=== PATIENT | female | born 1960 | race Caucasian/White ===

== ENCOUNTER 2016-11-18 09:22 | Observation (INO) ==
[2016-11-18] MEDS ORDERED: Ondansetron 4 MG/2 ML VIAL IVP ONE (10:00)
[2016-11-18] MEDS ORDERED: 0.9 % Sodium Chloride 1,000 ML IVC ONE (10:00)
[2016-11-18] MEDS ORDERED: Pantoprazole 40 MG VIAL IVP ONE (10:02)
--- NOTE | 2016-11-18 10:03 | Emergency Department Note ---
Disposition Clinical Impression: Hypokalemia Left lower lobe pneumonia Qualifiers: Pneumonia type: due to unspecified organism Qualified Code(s): J18.1 - Lobar pneumonia, unspecified organism Disposition: Admitted As Inpatient Condition: Fair General Adult HPI - General Chief complaint: ED Nausea/Vomiting/Diarrhea Stated complaint: nausea, dizziness Time Seen by Provider: 11/18/16 09:40 Source: patient Limitations: no limitations Nursing Notes Reviewed: Yes Vital Signs Reviewed: Yes - History of Present Illness HPI Narrative: Mrs. Childs, 56-year-old female, presents from home by POV with chief complaint of nausea, epigastric pain. Persistent since endoscopic removal of a silicone satiety ball at [facility] 3 days ago. Epigastric pain described as a fist-like sensation with radiation into the-like distribution around each side to her back. Indication for removal of the device was pain with protracted nausea with vomiting which began 8 days ago. The device was placed approximately 5 weeks ago as an aid to increase satiety thus decreasing by mouth intake. During removal 3 days ago, patient's surgeon noted extensive gastritis. Patient has since had decreased by mouth intake, epigastric pain unrelieved by PPI, protracted nausea. She is able to keep down fluids. She has had decreased bowel movements which she should restart her decreased by mouth intake. Bowel movements described as pale and soft. She is still passing flatus. PMH: Hypertension, obesity. PSH: Cholecystectomy. Allergies: NKDA. Pain Scale: 0 - Related Data Home Medications Medication Instructions Recorded Confirmed Albuterol Sulfate [Albuterol 3 ml IH Q4-6H PRN 11/18/16 11/18/16 Sulfate] Albuterol Sulfate [Proventil Hfa] 2 puff IH Q4H PRN 11/18/16 11/18/16 Amlodipine Besylate [Amlodipine 10 mg PO DAILY 11/18/16 11/18/16 Besylate] Fluticasone/Salmeterol [Advair 1 puff IH BID 11/18/16 11/18/16 250-50 Diskus] Metoprolol XL (24 HR) Succ [Toprol 50 mg PO DAILY 11/18/16 11/18/16 Xl] Montelukast [Singulair] 10 mg PO DAILY 11/18/16 11/18/16 Omeprazole [PriLOSEC] 20 mg PO DAILY 11/18/16 11/18/16 Sertraline [Zoloft] 100 mg PO DAILY 11/18/16 11/18/16 Allergies Allergy/AdvReac Type Severity Reaction Status Date / Time No Known Allergies Allergy Verified 11/18/16 09:29 All systems ED: reviewed and negative except as stated. Constitutional: Denies: fever, chills, weakness Cardiovascular: Denies: chest pain, palpitations, dyspnea on exertion Respiratory: Denies: cough, dyspnea, wheezes, hemoptysis Gastrointestinal: Reports: abdominal pain, nausea. Denies: vomiting, diarrhea, constipation, hematemesis, melena, hematochezia Genitourinary: Denies: urgency, dysuria, frequency Musculoskeletal: Reports: back pain. Denies: neck pain Integumentary: Denies: rash, abrasion, lesions Neurological: Denies: headache, weakness, numbness, paresthesias Hematological/Lymphatic: Reports: easy bruising. Denies: easy bleeding Past Medical History - Past Medical History Medical history: Reports: hypertension Psychiatric history: Reports: anxiety - Social History Smoking Status: Former smoker Alcohol use: Reports: none Drug use: Reports: none Physical Exam General: Patient is well-appearing and nontoxic, alert, oriented, and in no acute distress. HEENT: No facial asymmetry. Head is normocephalic and atraumatic. PERRLA, EOMI. trachea midline. Cardiovascular: Heart regular rate and rhythm without clicks, rubs, gallops, or murmurs. No pedal edema. Respiratory: Symmetric chest rise with good respiratory effort. Bilateral breath sounds are clear without wheezing, crackles, or rhonchi. Abdomen: Bowel sounds are faint but present x-4 quadrants. Abdomen is soft, nondistended, without guarding. Tenderness in epigastrium with extension into the left upper quadrant subcostal margin. No organomegaly noted. Psych: Patient's affect is appropriate for situation. - General Limitations: no limitations General appearance: alert, in no apparent distress Course Course Narrative: Once workup is complete, we will speak with her surgeon at [facility]. Patient's nausea persists though it has improved to the point where she is hungry. Patient is hypokalemic with potassium 2.8. Will replenish with 20 mEq IV. Acute abdomen series as well as physical exam is concerning for left lower lobe findings. [place] to treat for left lower lobe pneumonia. After discussing the findings with the patient and her their shared decision making, they prefer admission given the protracted course of her symptoms. does not feel safe with the patient at home is a recently sold her house and moved into short-term accommodations in apartment with multiple stairs to climb. [facility]. [facility] [id number] [place] [address], [address] [place] [address] - Moderate esophagitis on endoscopy. - No additional concerns from their perspective. Spoke with Dr. Lombardo who agrees to accept the patient. Vital Signs Temperature 98.6 F 11/18/16 09:29 Pulse Rate 100 11/18/16 09:29 Respiratory Rate 18 11/18/16 09:29 Blood Pressure 129/77 11/18/16 09:29 O2 Sat by Pulse Oximetry 95 11/18/16 09:29 Temperature 98.2 F 11/18/16 14:03 Pulse Rate 82 11/18/16 14:03 Respiratory Rate 17 11/18/16 14:03 Blood Pressure 134/80 11/18/16 14:03 O2 Sat by Pulse Oximetry 96 11/18/16 14:03 Oxygen Delivery Oxygen Delivery Room Air Medical Decision Making - Medical Records Medical records reviewed: Yes I reviewed the patient's medical records. - Lab Data Lab results reviewed: Yes I reviewed the patient's lab results. Result diagrams: 11/18/16 10:12 11/18/16 10:12 Lab Results 11/18/16 11/18/16 11/18/16 Range/Units 10:12 10:12 10:12 WBC 9.7 (4.3-11.1) K/mcL RBC 4.63 (3.82-4.97) M/mcL Hgb 13.6 (11.5-15.4) g/dL Hct 39.3 (35.3-44.9) % MCV 84.9 (83.0-100.0) fL MCH 29.4 (28.0-33.3) pg MCHC 34.6 (31.6-35.5) g/dL RDW 11.8 (11.5-14.5) % Plt Count 142 (140-400) K/mcL MPV 10.8 (9.4-12.4) fL Immature Gran % 0.4 (0-4) % Seg Neutrophils % 84.0 % Lymphocytes % 6.1 % Monocytes % 8.7 % Eosinophils % 0.6 % Basophils % 0.2 % Neutrophils # 8.1 (1.6-8.9) K/mcL Lymphocytes # 0.6 (0.6-4.6) K/mcL Monocytes # 0.8 (0.0-1.3) K/mcL Eosinophils # 0.1 (0.0-0.6) K/mcL Basophils # 0.0 (0.0-0.2) K/mcL Immature Plt Fraction 7.9 H (1.1-6.1) % Sodium 140 (136-145) mEq/L Potassium 2.8 L (3.5-4.5) mEq/L Chloride 104 (98-109) mEq/L Carbon Dioxide 26 (19-29) mEq/L BUN 8 (7-20) mg/dL Creatinine 0.76 (0.57-1.11) mg/dL Est GFR ( Amer) > 60 (> 60) Est GFR (Non-Af Amer) > 60 (> 60) BUN/Creatinine Ratio 11 (6-26) Glucose 111 H (70-99) mg/dL Calculated Osmolality 289 (280-300) Calcium 9.0 (8.6-10.8) mg/dL Total Bilirubin 0.8 (0.2-1.2) mg/dL AST 21 (5-34) Units/L ALT 128 H (0-55) Units/L Alkaline Phosphatase 93 (38-126) Units/L Troponin I 0.00 (0-0.03) ng/mL Serum Total Protein 6.8 (6.0-8.3) g/dL Albumin 3.4 L (3.5-5.0) g/dL Globulin 3.4 (2.4-3.5) g/dL Albumin/Globulin Ratio 1.0 L (1.1-2.2) Lipase 11 (8-78) Units/L Urine Color (Yellow) Urine Clarity (Clear) Urine pH (5.0-8.0) pH Units Ur Specific [place] (1.010-1.025) Urine Protein (Neg-Trace) mg/dL Urine Glucose (UA) (Normal) mg/dL Urine Ketones (Negative) mg/dL Urine Blood (Negative) Urine Nitrite (Negative) Urine Bilirubin (Negative) Urine Urobilinogen (Normal) mg/dL Ur Leukocyte Esterase (Negative) Urine Microscopic RBC (0-3) per hpf Urine Microscopic WBC (0-3) per hpf Ur Squamous Epith Cells (None-Few) per lpf Urine Bacteria (None-Few) per hpf Hyaline Casts (None-Few) per lpf Urine Mucus (Few) Ur Culture Indicated? (NO) Urine Test (Negative) 11/18/16 11/18/16 Range/Units 10:55 10:55 WBC (4.3-11.1) K/mcL RBC (3.82-4.97) M/mcL Hgb (11.5-15.4) g/dL Hct (35.3-44.9) % MCV (83.0-100.0) fL MCH (28.0-33.3) pg MCHC (31.6-35.5) g/dL RDW (11.5-14.5) % Plt Count (140-400) K/mcL MPV (9.4-12.4) fL Immature Gran % (0-4) % Seg Neutrophils % % Lymphocytes % % Monocytes % % Eosinophils % % Basophils % % Neutrophils # (1.6-8.9) K/mcL Lymphocytes # (0.6-4.6) K/mcL Monocytes # (0.0-1.3) K/mcL Eosinophils # (0.0-0.6) K/mcL Basophils # (0.0-0.2) K/mcL Immature Plt Fraction (1.1-6.1) % Sodium (136-145) mEq/L Potassium (3.5-4.5) mEq/L Chloride (98-109) mEq/L Carbon Dioxide (19-29) mEq/L BUN (7-20) mg/dL Creatinine (0.57-1.11) mg/dL Est GFR ( Amer) (> 60) Est GFR (Non-Af Amer) (> 60) BUN/Creatinine Ratio (6-26) Glucose (70-99) mg/dL Calculated Osmolality (280-300) Calcium (8.6-10.8) mg/dL Total Bilirubin (0.2-1.2) mg/dL AST (5-34) Units/L ALT (0-55) Units/L Alkaline Phosphatase (38-126) Units/L Troponin I (0-0.03) ng/mL Serum Total Protein (6.0-8.3) g/dL Albumin (3.5-5.0) g/dL Globulin (2.4-3.5) g/dL Albumin/Globulin Ratio (1.1-2.2) Lipase (8-78) Units/L Urine Color Dark Yellow (Yellow) Urine Clarity Cloudy A (Clear) Urine pH 7.0 (5.0-8.0) pH Units Ur Specific [place] 1.020 (1.010-1.025) Urine Protein 30 H (Neg-Trace) mg/dL Urine Glucose (UA) Normal (Normal) mg/dL Urine Ketones Trace H (Negative) mg/dL Urine Blood Negative (Negative) Urine Nitrite Negative (Negative) Urine Bilirubin Small H (Negative) Urine Urobilinogen Normal (Normal) mg/dL Ur Leukocyte Esterase Negative (Negative) Urine Microscopic RBC 0-3 (0-3) per hpf Urine Microscopic WBC 0-3 (0-3) per hpf Ur Squamous Epith Cells Few (None-Few) per lpf Urine Bacteria None Seen (None-Few) per hpf Hyaline Casts None Seen (None-Few) per lpf Urine Mucus Moderate H (Few) Ur Culture Indicated? NO (NO) Urine Test Negative (Negative) - Radiology Data Radiology results reviewed: Yes I reviewed the patient's radiology results. Chest/Abdomen X-ray 11/18/16 10:00 IMPRESSION: 1. Left lower lobe pneumonia. 2. Nonobstructive bowel gas pattern. D/ / Vivek Garcia MD / Vivek Garcia MD Interpreting Provider: Vivek Garcia MD - EKG Data EKG #1 EKG attestation: Yes I reviewed and interpreted this EKG. EKG results narrative: EKG dated 11/18/16 interpreted as sinus rhythm with rate of 83. Oral intervals IA 160, QRS 94, QT/QTC 374/414. Left axis. Q waves evident in the [address]-T changes. Compared to previous dated 08/27/2014 indicating no acute ischemic changes of comparison.
--- NOTE | 2016-11-18 10:09 | Emergency Department Note ---
Disposition Clinical Impression: Hypokalemia, Left lower lobe pneumonia Disposition: Admitted As Inpatient Condition: Fair General Adult HPI - General Chief complaint: ED Nausea/Vomiting/Diarrhea Stated complaint: nausea, dizziness Time Seen by Provider: 11/18/16 09:40 Source: patient Limitations: no limitations Nursing Notes Reviewed: Yes Vital Signs Reviewed: Yes - History of Present Illness Pain Scale: 0 - Related Data Home Medications Medication Instructions Recorded Confirmed Albuterol Sulfate [Albuterol 3 ml IH Q4-6H PRN 11/18/16 11/18/16 Sulfate] Albuterol Sulfate [Proventil Hfa] 2 puff IH Q4H PRN 11/18/16 11/18/16 Amlodipine Besylate [Amlodipine 10 mg PO DAILY 11/18/16 11/18/16 Besylate] Fluticasone/Salmeterol [Advair 1 puff IH BID 11/18/16 11/18/16 250-50 Diskus] Metoprolol XL (24 HR) Succ [Toprol 50 mg PO DAILY 11/18/16 11/18/16 Xl] Montelukast [Singulair] 10 mg PO DAILY 11/18/16 11/18/16 Omeprazole [PriLOSEC] 20 mg PO DAILY 11/18/16 11/18/16 Sertraline [Zoloft] 100 mg PO DAILY 11/18/16 11/18/16 Allergies Allergy/AdvReac Type Severity Reaction Status Date / Time No Known Allergies Allergy Verified 11/18/16 09:29 Past Medical History - Past Medical History Medical history: Reports: hypertension Psychiatric history: Reports: anxiety - Social History Smoking Status: Former smoker Alcohol use: Reports: none Drug use: Reports: none Physical Exam - General Limitations: no limitations General appearance: alert, in no apparent distress Course Vital Signs Temperature 98.6 F 11/18/16 09:29 Pulse Rate 100 11/18/16 09:29 Respiratory Rate 18 11/18/16 09:29 Blood Pressure 129/77 11/18/16 09:29 O2 Sat by Pulse Oximetry 95 11/18/16 09:29 Temperature 98.2 F 11/18/16 14:03 Pulse Rate 82 11/18/16 14:03 Respiratory Rate 18 11/18/16 16:10 Blood Pressure 134/80 11/18/16 14:03 O2 Sat by Pulse Oximetry 96 11/18/16 16:10 Oxygen Delivery Oxygen Delivery Room Air Medical Decision Making - MDM Narrative Medical decision making narrative: I examined this patient and my medical decision-making was reviewed with the MICROBIOLOGY LABORATORY MANAGER/PA/Advanced Practice Nurse/Resident Physician. I agree with the documented findings, disposition and treatment plan as described except to the extent set forth below. Patient presents today with her and was seen by Dr. Hull and myself, I agree with his evaluation and management plan, supervising care the patient's stay. Patient comes in today complaining of nausea and some vomiting and abdominal discomfort. 5 weeks ago she had an implant placed in her stomach to help her with weight loss. She was able to tolerate for 5 weeks. They removed it because she was having a lot of pain and nausea. When he removed it they noticed she had significant gastritis, they placed her on a PPI. And she still had a lot of nausea and discomfort but no true abdominal pain. She says she is passing gas was able to eat some toast and tea this morning is still nauseous. She is having no chest pain or shortness of breath. She said her gallbladder out in the past and she has had a hysterectomy but still has her ovaries in place. We will see if we can make her more comfortable, check some lab work, check an acute abdominal series on her, and then we will see if we can get in touch with her physician in [place] who placed this for further follow-up. She is in agreement with this plan. Chest/Abdomen X-ray 11/18/16 10:00 IMPRESSION: 1. Left lower lobe pneumonia. 2. Nonobstructive bowel gas pattern. D/ / Vivek Garcia MD / Vivek Garcia MD Interpreting Provider: Vivek Garcia MD 1115 hrs.: Patient has a pneumonia on her chest x-ray. She is nontoxic. She is feeling better after getting fluids. Return replace her potassium, started on IV antibiotics. We will determine whether she needs to come into the hospital or if she would rather go home. She is in agreement with this plan. - Lab Data Result diagrams: 11/18/16 10:12 11/18/16 10:12 Lab Results 11/18/16 11/18/16 11/18/16 Range/Units 10:12 10:12 10:12 WBC 9.7 (4.3-11.1) K/mcL RBC 4.63 (3.82-4.97) M/mcL Hgb 13.6 (11.5-15.4) g/dL Hct 39.3 (35.3-44.9) % MCV 84.9 (83.0-100.0) fL MCH 29.4 (28.0-33.3) pg MCHC 34.6 (31.6-35.5) g/dL RDW 11.8 (11.5-14.5) % Plt Count 142 (140-400) K/mcL MPV 10.8 (9.4-12.4) fL Immature Gran % 0.4 (0-4) % Seg Neutrophils % 84.0 % Lymphocytes % 6.1 % Monocytes % 8.7 % Eosinophils % 0.6 % Basophils % 0.2 % Neutrophils # 8.1 (1.6-8.9) K/mcL Lymphocytes # 0.6 (0.6-4.6) K/mcL Monocytes # 0.8 (0.0-1.3) K/mcL Eosinophils # 0.1 (0.0-0.6) K/mcL Basophils # 0.0 (0.0-0.2) K/mcL Immature Plt Fraction 7.9 H (1.1-6.1) % Sodium 140 (136-145) mEq/L Potassium 2.8 L (3.5-4.5) mEq/L Chloride 104 (98-109) mEq/L Carbon Dioxide 26 (19-29) mEq/L BUN 8 (7-20) mg/dL Creatinine 0.76 (0.57-1.11) mg/dL Est GFR ( Amer) > 60 (> 60) Est GFR (Non-Af Amer) > 60 (> 60) BUN/Creatinine Ratio 11 (6-26) Glucose 111 H (70-99) mg/dL Calculated Osmolality 289 (280-300) Calcium 9.0 (8.6-10.8) mg/dL Magnesium 1.6 (1.6-2.6) mg/dL Total Bilirubin 0.8 (0.2-1.2) mg/dL AST 21 (5-34) Units/L ALT 128 H (0-55) Units/L Alkaline Phosphatase 93 (38-126) Units/L Troponin I 0.00 (0-0.03) ng/mL Serum Total Protein 6.8 (6.0-8.3) g/dL Albumin 3.4 L (3.5-5.0) g/dL Globulin 3.4 (2.4-3.5) g/dL Albumin/Globulin Ratio 1.0 L (1.1-2.2) Lipase 11 (8-78) Units/L Urine Color (Yellow) Urine Clarity (Clear) Urine pH (5.0-8.0) pH Units Ur Specific [place] (1.010-1.025) Urine Protein (Neg-Trace) mg/dL Urine Glucose (UA) (Normal) mg/dL Urine Ketones (Negative) mg/dL Urine Blood (Negative) Urine Nitrite (Negative) Urine Bilirubin (Negative) Urine Urobilinogen (Normal) mg/dL Ur Leukocyte Esterase (Negative) Urine Microscopic RBC (0-3) per hpf Urine Microscopic WBC (0-3) per hpf Ur Squamous Epith Cells (None-Few) per lpf Urine Bacteria (None-Few) per hpf Hyaline Casts (None-Few) per lpf Urine Mucus (Few) Ur Culture Indicated? (NO) Urine Test (Negative) 11/18/16 11/18/16 Range/Units 10:55 10:55 WBC (4.3-11.1) K/mcL RBC (3.82-4.97) M/mcL Hgb (11.5-15.4) g/dL Hct (35.3-44.9) % MCV (83.0-100.0) fL MCH (28.0-33.3) pg MCHC (31.6-35.5) g/dL RDW (11.5-14.5) % Plt Count (140-400) K/mcL MPV (9.4-12.4) fL Immature Gran % (0-4) % Seg Neutrophils % % Lymphocytes % % Monocytes % % Eosinophils % % Basophils % % Neutrophils # (1.6-8.9) K/mcL Lymphocytes # (0.6-4.6) K/mcL Monocytes # (0.0-1.3) K/mcL Eosinophils # (0.0-0.6) K/mcL Basophils # (0.0-0.2) K/mcL Immature Plt Fraction (1.1-6.1) % Sodium (136-145) mEq/L Potassium (3.5-4.5) mEq/L Chloride (98-109) mEq/L Carbon Dioxide (19-29) mEq/L BUN (7-20) mg/dL Creatinine (0.57-1.11) mg/dL Est GFR ( Amer) (> 60) Est GFR (Non-Af Amer) (> 60) BUN/Creatinine Ratio (6-26) Glucose (70-99) mg/dL Calculated Osmolality (280-300) Calcium (8.6-10.8) mg/dL Magnesium (1.6-2.6) mg/dL Total Bilirubin (0.2-1.2) mg/dL AST (5-34) Units/L ALT (0-55) Units/L Alkaline Phosphatase (38-126) Units/L Troponin I (0-0.03) ng/mL Serum Total Protein (6.0-8.3) g/dL Albumin (3.5-5.0) g/dL Globulin (2.4-3.5) g/dL Albumin/Globulin Ratio (1.1-2.2) Lipase (8-78) Units/L Urine Color Dark Yellow (Yellow) Urine Clarity Cloudy A (Clear) Urine pH 7.0 (5.0-8.0) pH Units Ur Specific [place] 1.020 (1.010-1.025) Urine Protein 30 H (Neg-Trace) mg/dL Urine Glucose (UA) Normal (Normal) mg/dL Urine Ketones Trace H (Negative) mg/dL Urine Blood Negative (Negative) Urine Nitrite Negative (Negative) Urine Bilirubin Small H (Negative) Urine Urobilinogen Normal (Normal) mg/dL Ur Leukocyte Esterase Negative (Negative) Urine Microscopic RBC 0-3 (0-3) per hpf Urine Microscopic WBC 0-3 (0-3) per hpf Ur Squamous Epith Cells Few (None-Few) per lpf Urine Bacteria None Seen (None-Few) per hpf Hyaline Casts None Seen (None-Few) per lpf Urine Mucus Moderate H (Few) Ur Culture Indicated? NO (NO) Urine Test Negative (Negative)
[2016-11-18 10:21] LABS: Basophils % 0.2 %; Eosinophils # 0.1 K/mcL (0.0-0.6); Eosinophils % 0.6 %; Hematocrit 39.3 % (35.3-44.9); Hemoglobin 13.6 g/dL (11.5-15.4); Immature Granulocytes % 0.4 % (0-4); Immature Platelets 7.9 % (1.1-6.1); Lymphocytes # 0.6 K/mcL (0.6-4.6); Lymphocytes % 6.1 %; Mean Corpuscular HGB Conc 34.6 g/dL (31.6-35.5); Mean Corpuscular Hemoglobin 29.4 pg (28.0-33.3); Mean Corpuscular Volume 84.9 fL (83.0-100.0); Mean Platelet Volume 10.8 fL (9.4-12.4); Monocytes # 0.8 K/mcL (0.0-1.3); Monocytes % 8.7 %; Neutrophils # 8.1 K/mcL (1.6-8.9); Platelet Count 142 K/mcL (140-400); Red Blood Count 4.63 M/mcL (3.82-4.97); Red Cell Distribution Width 11.8 % (11.5-14.5)
[2016-11-18 10:39] LABS: Alanine Aminotransferase 128 Units/L (0-55); Albumin 3.4 g/dL (3.5-5.0); Alkaline Phosphatase 93 Units/L (38-126); Aspartate Amino Transferase 21 Units/L (5-34); BUN/Creatinine Ratio 11 (6-26); Bilirubin,Total 0.8 mg/dL (0.2-1.2); Blood Urea Nitrogen 8 mg/dL (7-20); Carbon Dioxide 26 mEq/L (19-29); Chloride 104 mEq/L (98-109); Globulin 3.4 g/dL (2.4-3.5); Glucose 111 mg/dL (70-99); Lipase 11 Units/L (8-78); Osmolality,Calculated 289 (280-300); Potassium 2.8 mEq/L (3.5-4.5); Sodium 140 mEq/L (136-145); Total Protein 6.8 g/dL (6.0-8.3); eGFR For African Americans > 60 (> 60); eGFR For Non-African Americans > 60 (> 60)
[2016-11-18 11:13] LABS: Bilirubin,Urine Small (Negative); Blood,Urine Negative (Negative); Clarity,Urine Cloudy (Clear); Color,Urine Dark Yellow (Yellow); Glucose,Urine (UA) Normal (Normal); Ketones,Urine Trace mg/dL (Negative); Leukocyte Esterase,Urine Negative (Negative); Nitrite,Urine Negative (Negative); Protein,Urine 30 mg/dL (Neg-Trace); Urobilinogen,Urine Normal (Normal)
[2016-11-18 11:16] LABS: Bacteria,Urine None Seen per hpf (None-Few); Hyaline Casts,Urine None Seen per lpf (None-Few); RBC,Urine 0-3 per hpf (0-3); WBC,Urine 0-3 per hpf (0-3)
[2016-11-18] MEDS ORDERED: Levofloxacin 750 MG/150 ML 750 MG/150 ML BAG IVPB ONE (11:22)
[2016-11-18 11:31] LABS: Mucus,Urine Moderate (Few)
[2016-11-18 11:34] LABS: Squamous Epithelial Cell,Urine Few per lpf (None-Few)
[2016-11-18] MEDS ORDERED: 0.9 % Sodium Chloride 500 ML ONE (12:06)
[2016-11-18] MEDS ORDERED: 0.9 % Sodium Chloride 500 ML IVC SCH (12:30)
[2016-11-18] MEDS ORDERED: Acetaminophen 325 MG TABLET PO PRN (15:17)
[2016-11-18] MEDS ORDERED: Naloxone 0.4 MG/ML INJ IVP PRN (15:17)
[2016-11-18] MEDS ORDERED: Albuterol 2.5 MG/3 ML NEBULIZER IH PRN (15:23)
--- NOTE | 2016-11-18 15:27 | Internal Med History&Physical ---
Date of Encounter: 11/18/16 Time of Encounter: 13:30 Assessment and Plan (1) Left lower lobe pneumonia Current visit: Yes Status: Acute 1 patient has been experiencing cough shortness of breath and subjective fevers and chills for the past few days. Chest x-ray revealed left lower lobe pneumonia. Continue with oxygen to maintain SPO2 greater than 92% 2 continue with Levaquin 3 bronchodilators 4 steroid with taper 5 incentive spirometry Qualifiers: Pneumonia type: due to unspecified organism Qualified Code(s): J18.1 - Lobar pneumonia, unspecified organism (2) Hypertension Current visit: Yes Status: Acute 1 presently controlled we will continue with home medications: Listed maintain systolic less than 140 Qualifiers: Hypertension type: essential hypertension Qualified Code(s): I10 - Essential (primary) hypertension (3) COPD (chronic obstructive pulmonary disease) Current visit: Yes Status: Acute 1 presently no wheezing noted. We will continue with oxygen to maintain SPO2 92 % and weaned to room air 2 continue with bronchodilators 3 continue with steroids to taper Qualifiers: COPD type: chronic bronchitis Chronic bronchitis type: unspecified Qualified Code(s): J42 - Unspecified chronic bronchitis (4) Hypokalemia Current visit: Yes Status: Acute 1 potassium was 2.8 we will replace and monitor goal maintain potassium of 4 (5) DVT prophylaxis Current visit: Yes Status: Acute [facility] Internal Medicine - H&P: HPI Chief complaint: N/V abd pain Admitted From: Emergency Dept Plans for Post Hospital Care: Home History of present illness: Ms. Childs is a 56 year old female past medical history hypertension COPD. Information obtained from patient as well as medical records. The patient had a silicone saity-ball placed at [facility] 5 weeks ago. Afterwards she began to experience pain with protracted nausea and vomiting which began approximately 8 days ago. Due to these symptoms she had the ball removed 3 days ago . During the removal the surgeon noted extensive gastritis. Since the removal the patient has had a decreased oral intake, protracted nausea epigastric pain which is unrelieved by PPI. She has been able to keep down fluids however she has been unable to eat. Also over the past few days she has been experiencing cough with small amount of phlegm production with shortness of breath on exertion which is not relieved by nebulizer treatments. She does state she has subjective fevers chills. She denies any chest pain or palpitations or diarrhea She presented to the ER with the above complaints. Lab work revealed no leukocytosis she did have hypokalemia at 2.8 chest and abdominal x-ray reveals left lower lobe pneumonia as well as nonobstructive bowel gas pattern. EKG normal sinus rhythm with nonspecific ST changes. Patient was given Zofran, Protonix testing was replaced as well as given Levaquin. She has been admitted for further workup and evaluation. At present time patient does not appear to be in any respiratory distress. Upon auscultation patient's lung sounds are clear. Abdomen is soft and nondistended. Some tenderness in the epigastric area and no guarding. She is on 2 L nasal cannula oxygen saturation is stable 9 6% she is afebrile hemodynamically stable this time.I reviewed this case with Dr Lombardo who agrees with plan Past Med Surg Social Fam HX - Past Medical History Medical history: hypertension Psychiatric history: anxiety - Past Surgical History Surgical History: hysterectomy - Social History Smoking Status: Former smoker Alcohol use: none Drug use: none Internal Medicine - H&P: Meds Albuterol Sulfate [Albuterol Sulfate] 3 ml IH Q4-6H PRN 11/18/16 [History] Albuterol Sulfate [Proventil Hfa] 2 puff IH Q4H PRN 11/18/16 [History] Amlodipine Besylate [Amlodipine Besylate] 10 mg PO DAILY 11/18/16 [History] Fluticasone/Salmeterol [Advair 250-50 Diskus] 1 puff IH BID 11/18/16 [History] Metoprolol XL (24 HR) Succ [Toprol Xl] 50 mg PO DAILY 11/18/16 [History] Montelukast [Singulair] 10 mg PO DAILY 11/18/16 [History] Omeprazole [PriLOSEC] 20 mg PO DAILY 11/18/16 [History] Sertraline [Zoloft] 100 mg PO DAILY 11/18/16 [History] Allergies No Known Allergies Allergy (Verified 11/18/16 09:29) All Systems PM: A 10-system review of systems was performed and is negative for pertinent findings except as documented above in the HPI. - Constitutional Constitutional: anorexia, chills, fever(s), weight loss - Cardiovascular Cardiovascular ROS IM: no chest pain, no diaphoresis, no dyspnea, no lightheadedness, no palpitations, no syncope - Respiratory Respiratory: cough, dyspnea on exertion - Gastrointestinal Gastrointestinal: abdominal pain, early satiety, nausea, vomiting - Genitourinary Genitourinary: no change in urinary stream, no dysuria, no flank pain, no hematuria - Musculoskeletal Musculoskeletal ROS IM: as per HPI - Neurological Neurological ROS: no confusion, no convulsions, no focal weakness, no numbness, no tingling, no tremor(s) - Constitutional Vitals: Temp Pulse Resp BP Pulse Ox 98.2 F 82 17 134/80 96 11/18/16 14:03 11/18/16 14:03 11/18/16 14:03 11/18/16 14:03 11/18/16 14:03 General appearance: Present: A&O X 3, obese, answers questions appropriately - Head Head exam: Present: atraumatic, normocephalic - Respiratory Respiratory exam: Present: CTAB. Absent: accessory muscle use, rales, rhonchi, wheezes - Cardiovascular Cardiovascular exam: Present: RRR, +S1, +S2. Absent: diastolic murmur, gallop, rubs, systolic murmur - GI/Abdominal GI/Abdominal exam: Present: normal bowel sounds, soft, tenderness, no peritoneal signs. Absent: distended Additional comments: Tenderness around the epigastric area - Extremities Exam Extremities exam: Present: warm, radial pulses palpable and symetrical. Absent : calf tenderness, cyanotic, pedal edema - Neurological Exam Neurological exam: Present: CN II-XII intact, oriented X3, no focal deficits. Absent: pronater drift, facial droop, speech deficit - Skin Skin exam: Present: dry, intact Internal Med - H&P Results - Labs CBC & Chem 7: 11/18/16 10:12 11/18/16 10:12 - EKG Data EKG shows normal: sinus rhythm - EKG Data Prior EKG available for review: yes When compared to previous EKG: there is no significant change - Diagnostic Studies Other Images Additional comments: Chest abdominal x-ray radiology read left lower lobe pneumonia with non- obstructive bowel gas pattern
[2016-11-18 15:54] LABS: Magnesium 1.6 mg/dL (1.6-2.6)
[2016-11-18] MEDS: Ipratropium/Albuterol Neb 3 ML IH SCH ×2 (16:10→22:10)
[2016-11-18] MEDS: Ondansetron 4 MG/2 ML VIAL IVP PRN (17:23)
--- NOTE | 2016-11-18 18:06 | Electrocardiograph Report ---
[facility] Test Date: 2016-11-18 Pat Name: Gia Childs Department: 103 Room: 3B44 Gender: F Small Animal Caretaker: : [id number] Requested By: Kade Hull Order Number: [id number] Reading MD: Jeff Raya MD Measurements Intervals [place] Rate: 83 P: 17 MN: 160 QRS: -11 QRSD: 94 T: 17 QT: 374 QTc: 414 Interpretive Statements SINUS RHYTHM MODERATE VOLTAGE CRITERIA FOR LVH, CONSIDER NORMAL VARIANT INFERIOR MYOCARDIAL INFARCTION, PROBABLY OLD POSSIBLE ANTEROSEPTAL MYOCARDIAL INFARCTION, PROBABLY OLD Electronically Signed On 11-18-2016 18:04:09 EST by Jeff Raya MD
[2016-11-18] MEDS: 0.9 % Sodium Chloride 500 ML IVC SCH (22:06)
[2016-11-18] MEDS: Budesonide/Formoterol 160/4.5 MDI IH SCH (22:09)
[2016-11-18] MEDS: Pantoprazole 40 MG VIAL IVP SCH (22:10)
[2016-11-19] MEDS: Ondansetron 4 MG/2 ML VIAL IVP PRN ×3 (00:49→17:02)
[2016-11-19] MEDS: MethylPREDNISolone 40 MG/ML VIAL IVP SCH ×3 (00:49→16:54)
[2016-11-19 04:30] LABS: Basophils % 0.1 %; Eosinophils % 0.3 %; Hematocrit 37.8 % (35.3-44.9); Immature Granulocytes % 0.6 % (0-4); Lymphocytes # 0.5 K/mcL (0.6-4.6); Lymphocytes % 4.3 %; Mean Corpuscular HGB Conc 34.4 g/dL (31.6-35.5); Mean Corpuscular Volume 84.4 fL (83.0-100.0); Mean Platelet Volume 11.2 fL (9.4-12.4); Monocytes # 0.3 K/mcL (0.0-1.3); Monocytes % 2.7 %; Neutrophils # 9.7 K/mcL (1.6-8.9); Platelet Count 144 K/mcL (140-400); Red Blood Count 4.48 M/mcL (3.82-4.97); Red Cell Distribution Width 11.8 % (11.5-14.5)
[2016-11-19 04:54] LABS: BUN/Creatinine Ratio 8 (6-26); Blood Urea Nitrogen 6 mg/dL (7-20); Calcium 8.8 mg/dL (8.6-10.8); Carbon Dioxide 22 mEq/L (19-29); Chloride 108 mEq/L (98-109); Glucose 151 mg/dL (70-99); Osmolality,Calculated 291 (280-300); Potassium 3.2 mEq/L (3.5-4.5); Sodium 140 mEq/L (136-145); eGFR For African Americans > 60 (> 60); eGFR For Non-African Americans > 60 (> 60)
[2016-11-19] MEDS: Ipratropium/Albuterol Neb 3 ML IH SCH ×5 (05:16→22:10)
[2016-11-19] MEDS: Pantoprazole 40 MG VIAL IVP SCH ×2 (05:52→16:54)
[2016-11-19] MEDS: Levofloxacin 750 MG/150 ML 750 MG/150 ML BAG IVPB SCH (08:05)
[2016-11-19] MEDS: amLODIPine 5 MG TABLET PO SCH (08:06)
[2016-11-19] MEDS: Metoprolol XL (24 HR) Succ 50 MG TAB.ER.24H PO SCH (08:06)
[2016-11-19] MEDS: 0.9 % Sodium Chloride 500 ML IVC SCH (08:49)
[2016-11-19] MEDS: Budesonide/Formoterol 160/4.5 MDI IH SCH ×2 (10:08→19:59)
[2016-11-19] MEDS ORDERED: Potassium Chloride 40 MEQ, Lidocaine 1% 2 ML in D5% in Water 500 ML IVPB ONE (12:59)
--- NOTE | 2016-11-19 14:02 | Internal Med Progress Note ---
Date of Encounter: 11/19/16 Time of Encounter: 14:00 - Assessment and plan (1) COPD (chronic obstructive pulmonary disease) Current Visit: Yes Status: Chronic Assessment and plan: NO wheezing on exam Duones prn No indication for steroids at this time Qualifiers: COPD type: chronic bronchitis Chronic bronchitis type: unspecified Qualified Code(s): J42 - Unspecified chronic bronchitis (2) Hypertension Current Visit: Yes Status: Chronic Assessment and plan: Controlled Continue meds Qualifiers: Hypertension type: essential hypertension Qualified Code(s): I10 - Essential (primary) hypertension (3) Hypokalemia Current Visit: Yes Status: Acute Assessment and plan: Improving Continue replacements (4) Left lower lobe pneumonia Current Visit: Yes Status: Acute Assessment and plan: Continue Levaquin Qualifiers: Pneumonia type: due to unspecified organism Qualified Code(s): J18.1 - Lobar pneumonia, unspecified organism - Subjective Interval history: Initial encounter 56 y/O F Admitted for management of Gastritis, LLL pneumonia and hypokalemia from intractable vomiting She has a PMH of HTN and COPD She is seen at bedside with spouse. She states she was able to hold down her breakfast and lunch She has no new complains - Constitutional Vitals: Temp Pulse Resp BP Pulse Ox 97.7 F 70 18 125/71 95 11/19/16 11:14 11/19/16 11:14 11/19/16 11:14 11/19/16 11:14 11/19/16 11:14 General appearance: Present: A&O X 3, pleasant, no acute distress, obese, answers questions appropriately - Head Head exam: Present: atraumatic - Eye Eye exam: Present: PERRL, conjuntiva pink, sclera anicteric - ENT ENT exam: Present: mucous membranes moist - Neck Neck exam general surgery: Present: normal inspection - Respiratory Respiratory exam: Present: rhonchi. Absent: rales, respiratory distress, tachypnea - Cardiovascular Cardiovascular exam: Present: RRR, +S1, +S2. Absent: diastolic murmur, gallop, rubs, systolic murmur - GI/Abdominal GI/Abdominal exam: Present: normal bowel sounds, soft, no peritoneal signs. Absent: distended, tenderness - Extremities Exam Extremities exam: Present: warm, radial pulses palpable and symetrical. Absent : calf tenderness, cyanotic, pedal edema - Neurological Exam Neurological exam: Present: CN II-XII intact, oriented X3, no focal deficits. Absent: pronater drift, facial droop, speech deficit - Skin Skin exam: Present: dry, intact Internal Medicine: Result - Labs CBC & Chem 7: 11/19/16 04:10 11/19/16 04:10 Labs: Short CBC 11/19/16 Range/Units 04:10 WBC 10.5 (4.3-11.1) K/mcL Hgb 13.0 (11.5-15.4) g/dL Hct 37.8 (35.3-44.9) % Plt Count 144 (140-400) K/mcL Neutrophils # 9.7 H (1.6-8.9) K/mcL BMP 11/19/16 04:10 Sodium 140 Potassium 3.2 L Chloride 108 Carbon Dioxide 22 BUN 6 L Creatinine 0.71 Glucose 151 H Calcium 8.8 Consult Discharge Plan - Plan Referrals: Akosua White, [employer] MANAGER [Primary Care Provider] -
[2016-11-20] MEDS: MethylPREDNISolone 40 MG/ML VIAL IVP SCH (00:04)
[2016-11-20] MEDS: Ipratropium/Albuterol Neb 3 ML IH SCH ×2 (04:26→09:48)
[2016-11-20] MEDS: Ondansetron 4 MG/2 ML VIAL IVP PRN (04:36)
[2016-11-20] MEDS: Pantoprazole 40 MG VIAL IVP SCH (06:34)
[2016-11-20] MEDS: Levofloxacin 750 MG/150 ML 750 MG/150 ML BAG IVPB SCH (08:16)
[2016-11-20] MEDS: Metoprolol XL (24 HR) Succ 50 MG TAB.ER.24H PO SCH (08:17)
[2016-11-20] MEDS: amLODIPine 5 MG TABLET PO SCH (08:17)
[2016-11-20] MEDS ORDERED: predniSONE 20 MG TABLET PO SCH (09:00)
[2016-11-20] MEDS ORDERED: Metoprolol XL (24 HR) Succ 25 MG TAB.ER.24H PO ONE (09:30)
[2016-11-20] MEDS: Budesonide/Formoterol 160/4.5 MDI IH SCH (09:47)
[2016-11-20] MEDS ORDERED: levoFLOXacin 750 MG TABLET PO SCH (10:42)
[2016-11-20 11:32] VITALS: BP 143/90
--- NOTE | 2016-11-20 12:59 | Discharge Summary ---
Date of Encounter: 11/20/16 Time of Encounter: 12:54 - Discharge Diagnosis (1) COPD (chronic obstructive pulmonary disease) Priority: Secondary Status: Chronic Qualifiers: COPD type: chronic bronchitis Chronic bronchitis type: unspecified Qualified Code(s): J42 - Unspecified chronic bronchitis (2) Hypertension Priority: Secondary Status: Chronic Qualifiers: Hypertension type: essential hypertension Qualified Code(s): I10 - Essential (primary) hypertension (3) Hypokalemia Priority: Primary Status: Resolved (4) Left lower lobe pneumonia Priority: Primary Status: Acute Qualifiers: Pneumonia type: due to unspecified organism Qualified Code(s): J18.1 - Lobar pneumonia, unspecified organism - Discharge Medications Prescriptions: Levofloxacin 750 mg PO DAILY #5 tablet Home Medications: Albuterol Sulfate 3 ml IH Q4-6H PRN 11/18/16 [History] Albuterol Sulfate [Proventil Hfa] 2 puff IH Q4H PRN 11/18/16 [History] Amlodipine Besylate 10 mg PO DAILY 11/18/16 [History] Fluticasone/Salmeterol [Advair 250-50 Diskus] 1 puff IH BID 11/18/16 [History] Metoprolol XL (24 HR) Succ [Toprol Xl] 50 mg PO DAILY 11/18/16 [History] Montelukast [Singulair] 10 mg PO DAILY 11/18/16 [History] Omeprazole [PriLOSEC] 20 mg PO DAILY 11/18/16 [History] Sertraline [Zoloft] 100 mg PO DAILY 11/18/16 [History] Levofloxacin 750 mg PO DAILY #5 tablet 11/20/16 [Rx] Allergies/Adverse Reactions: Allergies No Known Allergies Allergy (Verified 11/18/16 09:29) Date of admission: 11/18/16 12:52 Primary care physician: Akosua White CNP Discharging clinician: Randal Farah date of discharge: 11/20/16 - Patient Status Disposition: Home, Self-Care Condition: Fair Functional capacity at discharge: independent ambulation Overall status at discharge: patient is back to baseline - Discharge Instructions Follow Up With: Akosua White CNP [Primary Care Provider] - - Diet and Activity Activity: resume usual activities as tolerated Diet: low fat, low cholesterol, low salt diet Interval History: See below Hospital course: Ms. Childs is a 56 year old female with PMH of COPD, HTN She was admitted for management of LLL pneumonia, gastritis, possibly viral and hypokalemia from intractable vomiting She was managed with IVF hydration and potassium replacements and IV antibiotics for her LLL pneumonia She was afebrile prior to admission and remains so, no evidence of sepsis on admission This morning, she is seen at bedside, denies new complains She has been tolerating her medications orally, no more episodes of vomiting in 24 hours She is stable clinically for discharge She denies smoking actively She is unsure if she refused her flu shot, will follow up with her PCP to confirm She is educated on po antibiotics and duration of 5 days Verbalized understanding - Time Spent with Patient Total time spent providing and/or coordinating discharge services: Less than 30 minutes - Constitutional Vitals: Temp Pulse Resp BP Pulse Ox 97.6 F 71 18 143/90 95 11/20/16 11:31 11/20/16 11:31 11/20/16 11:31 11/20/16 11:31 11/20/16 11:31 General appearance: Present: A&O X 3, pleasant, no acute distress, obese, answers questions appropriately - Head Head exam: Present: atraumatic, normocephalic - Eye Eye exam: Present: PERRL, conjuntiva pink, sclera anicteric Pupils: Present: PERRL - Neck Neck exam general surgery: Present: supple, trachea midline. Absent: lymphadenopathy - Respiratory Respiratory exam: Present: rhonchi (LLL base) - Cardiovascular Cardiovascular exam: Present: RRR, +S1, +S2. Absent: diastolic murmur, gallop, rubs, systolic murmur - GI/Abdominal GI/Abdominal exam: Present: normal bowel sounds, soft, no peritoneal signs. Absent: distended, tenderness - Extremities Exam Extremities exam: Present: warm, radial pulses palpable and symetrical. Absent : calf tenderness, cyanotic, pedal edema - Neurological Exam Neurological exam: Present: CN II-XII intact, oriented X3, no focal deficits. Absent: pronater drift, facial droop, speech deficit - Skin Skin exam: Present: dry, intact
[2016-11-21] MEDS ORDERED: levoFLOXacin 500 MG TABLET PO SCH (09:00)
== END 2016-11-20 13:27 | disposition home or self-care (01) ==
LOC: EMEROO 09:22 → 3BNU 09:22 → SUATTDRO 12:52 → 3BNU 13:20
PROVIDERS: ADMIT Nurse Practitioner Acute Care; ATTEND Internal Medicine